=== PATIENT | female | born 1990 | race Caucasian/White ===

== ENCOUNTER 2017-06-26 18:44 | Emergency (ER) | payer MEDICAID ==
[~2017-06-26] VITALS: Ht 165.1 cm; Wt 158.8 kg
[~2017-06-26 18:44] MED LIST: ALB6.7R INH; ROBC PO
--- NOTE | 2017-06-26 18:46 | ER Report ---
History and Physical Time Seen By MD: 18:45 Hx. of Stated Complaint: Nausea vomiting and diarrhea HPI/ROS 26 year old female w 12 hour h/o nausea vomiting and diarrhea . vomiting x 6 diarrhea x 4 Allergies: Coded Allergies: No Known Drug Allergies (Unverified , 06/26/17) Home Meds Active Scripts Diphenoxylate Hcl/Atropine (LOMOTIL TABLET) 1 Each Tablet, 2 EACH PO QID for diarrhea for 3 Days, #12 TAB Prov:DIAMANTE HOLLINGSWORTH 06/26/17 Ondansetron (ZOFRAN ODT) 4 Mg Tab.rapdis, 4 MG PO Q6H Y for NAUSEA/VOMITING, # 20 TAB.NANCY Prov:DIAMANTE HOLLINGSWORTH 06/26/17 Discontinued Reported Medications Albuterol Sulfate (PROVENTIL HFA) 6.7 Gm Inh, 1-2 PUFF INH 3-4XD Y for SHORTNESS OF BREATH, INH 11/19/16 Past Medical/Surgical History History of asthma last menstrual period is May 29 history of anxiety Hx Smoking: Yes (OCCAS) Hx Substance Use Disorder: No Hx Alcohol Use: No Family History of: HTN Constitutional Vital Sign - Last 24 Hours 06/26/17 18:51 Temp 98.4 Pulse 114 Resp 22 B/P (MAP) 140/100 Pulse Ox 96 Intake and Output 06/26/17 06/26/17 06/27/17 15:00 23:00 07:00 Intake Total 1000 ml Balance 1000 ml Physical Exam 26-year-old female alert and oriented mild distress HEENT head is normocephalic/ atraumatic tympanic membranes are non-reddened throat is non-reddened neck is supple no JVD heart rate is regular no murmurs rubs or gallops lungs clear to auscultation abdomen is obese she has hyper active bowel sounds times all quadrants mild midepigastric abdominal pain Medical Decision Making Data Points Result Diagram: 06/26/17189906/26/171899 Laboratory Hematology Test 06/26/17 19:00 Red Blood Count 5.20 M/uL (4.17-5.56) Mean Corpuscular Volume 88.2 fL (80.0-96.0) Mean Corpuscular Hemoglobin 29.5 pg (26.0-33.0) Mean Corpuscular Hemoglobin Concent 33.4 g/dL (32.0-36.0) Red Cell Distribution Width 14.4 % (11.5-14.5) Mean Platelet Volume 8.6 fL (7.2-11.1) Neutrophils (%) (Auto) 79.6 % (39.4-72.5) Lymphocytes (%) (Auto) 12.5 % (17.6-49.6) Monocytes (%) (Auto) 5.6 % (4.1-12.4) Eosinophils (%) (Auto) 1.6 % (0.4-6.7) Basophils (%) (Auto) 0.7 % (0.3-1.4) Nucleated RBC Relative Count (auto) 0.0 /100WBC Neutrophils # (Auto) 8.0 K/uL (2.0-7.4) Lymphocytes # (Auto) 1.3 K/uL (1.3-3.6) Monocytes # (Auto) 0.6 K/uL (0.3-1.0) Eosinophils # (Auto) 0.2 K/uL (0.0-0.5) Basophils # (Auto) 0.1 K/uL (0.0-0.1) Nucleated RBC Absolute Count (auto) 0.00 K/uL Urine Color Yellow Urine Clarity Cloudy Urine pH 6.0 pH (4.8-9.5) Urine Specific [place] 1.021 Urine Protein Negative mg/dL (NEGATIVE) Urine Glucose (UA) Negative mg/dL (NEGATIVE) Urine Ketones Negative mg/dL (NEGATIVE) Urine Blood Negative (NEGATIVE) Urine Nitrite Negative (NEGATIVE) Urine Bilirubin Negative (NEGATIVE) Urine Urobilinogen Negative mg/dL (0.2-1.9) Urine Leukocyte Esterase Trace (NEGATIVE) Urine RBC 1 /HPF (0-2/HPF) Urine WBC 2 /HPF (0-5/HPF) Urine Squamous Epithelial Cells Many /LPF (</=FEW) Urine Bacteria Negative /HPF (NONE-FEW) Urine Mucus None /HPF (NONE-FEW) Sodium Level 138 mmol/L (137-145) Potassium Level 3.7 mmol/L (3.5-5.0) Chloride Level 105 mmol/L (98-107) Carbon Dioxide Level 20 mmol/L (22-31) Blood Urea Nitrogen 11 mg/dl (7-18) Creatinine 0.60 mg/dl (0.52-1.04) Glomerular Filtration Rate Calc > 60.0 Random Glucose 132 mg/dl (75-110) Lactate 2.2 mmol/L (0.7-2.1) Calcium Level 7.9 mg/dl (8.4-10.2) Total Bilirubin 0.3 mg/dl (0.2-1.3) Aspartate Amino Transf (AST/SGOT) 24 U/L (0-35) Alanine Aminotransferase (ALT/SGPT) 34 U/L (0-56) Alkaline Phosphatase 88 U/L (0-126) Total Protein 6.9 gm/dl (6.3-8.2) Albumin 3.5 g/dl (3.5-5.0) Amylase Level 59 U/L (0-110) Lipase 81 U/L (23-300) Human Chorionic Gonadotropin, Qual Negative (NEGATIVE) Chemistry Test 06/26/17 19:00 White Blood Count 10.1 k/uL (4.5-11.0) Red Blood Count 5.20 M/uL (4.17-5.56) Hemoglobin 15.3 g/dL (12.0-16.0) Hematocrit 45.8 % (34.0-47.0) Mean Corpuscular Volume 88.2 fL (80.0-96.0) Mean Corpuscular Hemoglobin 29.5 pg (26.0-33.0) Mean Corpuscular Hemoglobin Concent 33.4 g/dL (32.0-36.0) Red Cell Distribution Width 14.4 % (11.5-14.5) Platelet Count 275 K/uL (150-450) Mean Platelet Volume 8.6 fL (7.2-11.1) Neutrophils (%) (Auto) 79.6 % (39.4-72.5) Lymphocytes (%) (Auto) 12.5 % (17.6-49.6) Monocytes (%) (Auto) 5.6 % (4.1-12.4) Eosinophils (%) (Auto) 1.6 % (0.4-6.7) Basophils (%) (Auto) 0.7 % (0.3-1.4) Nucleated RBC Relative Count (auto) 0.0 /100WBC Neutrophils # (Auto) 8.0 K/uL (2.0-7.4) Lymphocytes # (Auto) 1.3 K/uL (1.3-3.6) Monocytes # (Auto) 0.6 K/uL (0.3-1.0) Eosinophils # (Auto) 0.2 K/uL (0.0-0.5) Basophils # (Auto) 0.1 K/uL (0.0-0.1) Nucleated RBC Absolute Count (auto) 0.00 K/uL Urine Color Yellow Urine Clarity Cloudy Urine pH 6.0 pH (4.8-9.5) Urine Specific [place] 1.021 Urine Protein Negative mg/dL (NEGATIVE) Urine Glucose (UA) Negative mg/dL (NEGATIVE) Urine Ketones Negative mg/dL (NEGATIVE) Urine Blood Negative (NEGATIVE) Urine Nitrite Negative (NEGATIVE) Urine Bilirubin Negative (NEGATIVE) Urine Urobilinogen Negative mg/dL (0.2-1.9) Urine Leukocyte Esterase Trace (NEGATIVE) Urine RBC 1 /HPF (0-2/HPF) Urine WBC 2 /HPF (0-5/HPF) Urine Squamous Epithelial Cells Many /LPF (</=FEW) Urine Bacteria Negative /HPF (NONE-FEW) Urine Mucus None /HPF (NONE-FEW) Glomerular Filtration Rate Calc > 60.0 Lactate 2.2 mmol/L (0.7-2.1) Calcium Level 7.9 mg/dl (8.4-10.2) Total Bilirubin 0.3 mg/dl (0.2-1.3) Aspartate Amino Transf (AST/SGOT) 24 U/L (0-35) Alanine Aminotransferase (ALT/SGPT) 34 U/L (0-56) Alkaline Phosphatase 88 U/L (0-126) Total Protein 6.9 gm/dl (6.3-8.2) Albumin 3.5 g/dl (3.5-5.0) Amylase Level 59 U/L (0-110) Lipase 81 U/L (23-300) Human Chorionic Gonadotropin, Qual Negative (NEGATIVE) Urinalysis Test 06/26/17 19:00 Urine Color Yellow Urine Clarity Cloudy Urine pH 6.0 pH (4.8-9.5) Urine Specific [place] 1.021 Urine Protein Negative mg/dL (NEGATIVE) Urine Glucose (UA) Negative mg/dL (NEGATIVE) Urine Ketones Negative mg/dL (NEGATIVE) Urine Blood Negative (NEGATIVE) Urine Nitrite Negative (NEGATIVE) Urine Bilirubin Negative (NEGATIVE) Urine Urobilinogen Negative mg/dL (0.2-1.9) Urine Leukocyte Esterase Trace (NEGATIVE) Urine RBC 1 /HPF (0-2/HPF) Urine WBC 2 /HPF (0-5/HPF) Urine Squamous Epithelial Cells Many /LPF (</=FEW) Urine Bacteria Negative /HPF (NONE-FEW) Urine Mucus None /HPF (NONE-FEW) EKG/Imaging Imaging FACILITY: [facility] [place] PATIENT NAME: Temi Reinoso : 1990 MR: [id number] V: [id number] EXAM DATE: ORDERING PHYSICIAN: DIAMANTE HOLLINGSWORTH TECHNOLOG[place] [facility] [place] Temi Re[place] : 1990 Visit/Account:[id number] Date of Sevice: 06/26/2017 EXAMINATION: CT abdomen and pelvis with contrast COMPARISON: None. HISTORY: Abdomen pain and vomiting today. PROCEDURE: Multiplanar contrast enhanced CT of the abdomen and pelvis with 75 mL intravenous Isovue 370. One of the following dose optimization techniques was utilized in the performance of this exam: Automated exposure control; adjustment of the mA and/or kV according to the patient's size; or use of an iterative reconstruction technique. Specific details can be referenced in the facility's radiology CT exam operational policy. FINDINGS: Visualized thorax: Negative. Liver: Negative. Gallbladder and biliary system: Negative Spleen: Spleen size is normal. Pancreas: Negative. Adrenal glands: Negative. Kidneys and bladder: No renal mass or evidence of an obstructive uropathy. Urinary bladder is unremarkable. Vessels: Within normal limits. Bowel and mesentery: Stomach is within normal limits. There are a few prominent fluid-filled loops of small bowel but no discrete transition point or evidence of small bowel inflammation. Appendix is unremarkable. Small amount of stool and gas in the colon. No colonic inflammation. Pelvic organs: Negative. Lymph nodes: No adenopathy. Free air/free fluid: None. Abdominal wall and osseous structures: Abdominal wall is intact. Minimal lower thoracic spine degenerative change. IMPRESSION: Mildly prominent fluid-filled loops of small bowel are nonspecific but could be due to a gastroenteritis. Developing obstruction is considered unlikely. Report Dictated By: Ronn Ocampo MD at 06/26/2017 8:38 PM Report E-Signed By: Ronn Ocampo MD at 06/26/2017 8:44 PM [id number] ED Course/Re-evaluation Clinical Indication for ER IV: Hydration ED Course Received a liter of IV fluid 50 of fentanyl IV twice and Zofran 4 mg IV 1 and promethazine 12.5 IV 1 nausea seems better she had some retching before that promethazine seems to be better with that we'll send her home with ODT Zofran and Lomotil follow-up with primary care physician Re-evaluation better after treatment. ct and labs point to gastroenteritis picture no bowel obstruction Decision to Disposition Date: Jun 26, 2017 Decision to Disposition Time: 20:58 Depart Departure Latest Vital Signs Vital Signs Date Time Temp Pulse Resp B/P (MAP) Pulse Ox O2 Delivery O2 Flow Rate FiO2 06/26/17 18:51 98.4 114 22 140/100 96 Impression: Primary Impression: Gastroenteritis Condition: Improved Disposition: HOME OR SELF-CARE Referrals: [facility] 1 Day New Scripts Diphenoxylate Hcl/Atropine (LOMOTIL TABLET) 1 Each Tablet 2 EACH PO QID for diarrhea for 3 Days, #12 TAB Prov: DIAMANTE HOLLINGSWORTH 06/26/17 Ondansetron (ZOFRAN ODT) 4 Mg Tab.rapdis 4 MG PO Q6H Y for NAUSEA/VOMITING, #20 TAB.NANCY Prov: DIAMANTE HOLLINGSWORTH 06/26/17 Patient Instructions: Gastroenteritis (ED) Additional Instructions: Take medications as prescribed and return for any problems or concerns follow- up with her primary care physician coverage oral intake DIAMANTE HOLLINGSWORTH Jun 26, 2017 18:46
[2017-06-26] MEDS ORDERED: NS(*) 0.9% 1000 ML BAG 1,000 ML IV ONE (18:59)
[2017-06-26] MEDS ORDERED: fentaNYL CITR 100 MCG/2 ML AMP IVP ONE ×2 (19:00→19:55)
[2017-06-26] MEDS ORDERED: PANTOPRAZOLE SOD 40 MG IV VIAL IVP ONE (19:00)
[2017-06-26] MEDS ORDERED: ONDANSETRON 4 MG/2 ML VIAL IVP ONE (19:00)
[2017-06-26 19:17] LABS: PLATELET COUNT, AUTOMATED 275 K/uL (150-450)
[2017-06-26] MEDS ORDERED: DIPH-1 PO (19:47)
[2017-06-26] MEDS ORDERED: ONDA4TAB PO (19:47)
[2017-06-26] MEDS ORDERED: NS 0.9% 20 ML SDV 60 ML ONE (20:10)
[2017-06-26] MEDS ORDERED: IOPAMIDOL 76% 75 ML INFUS BTL 75 ML ONE (20:10)
[2017-06-26] MEDS ORDERED: PROMETHAZINE 25 MG/ML 1 ML AMP IVP ONE (20:50)
--- NOTE | 2017-06-26 20:50 | RADIOLOGY IMAGING REPORT ---
FACILITY: [facility] - [place], [place] PATIENT NAME: Temi Reinoso : 1990 MR: [id number] V: [id number] EXAM DATE: ORDERING PHYSICIAN: DIAMANTE HOLLINGSWORTH TECHNOLOGIST: Location: [facility] Patient: Temi Reinoso : 1990 Visit/Account:[id number] Date of Sevice: 06/26/2017 EXAMINATION: CT abdomen and pelvis with contrast COMPARISON: None. HISTORY: Abdomen pain and vomiting today. PROCEDURE: Multiplanar contrast enhanced CT of the abdomen and pelvis with 75 mL intravenous Isovue 3 70. One of the following dose optimization techniques was utilized in the performance of this exam: A utomated exposure control; adjustment of the mA and/or kV according to the patient's size; or use of an iterative reconstruction technique. Specific details can be referenced in the facility's radiolo gy CT exam operational policy. FINDINGS: Visualized thorax: Negative. Liver: Negative. Gallbladder and biliary system: Negative Spleen: Spleen size is normal. Pancreas: Negative. Adrenal glands: Negative. Kidneys and bladder: No renal mass or evidence of an obstructive uropathy. Urinary bladder is unrema rkable. Vessels: Within normal limits. Bowel and mesentery: Stomach is within normal limits. There are a few prominent fluid-filled loops of small bowel but no discrete transition point or evidence of small bowel inflammation. Appendix is un remarkable. Small amount of stool and gas in the colon. No colonic inflammation. Pelvic organs: Negative. Lymph nodes: No adenopathy. Free air/free fluid: None. Abdominal wall and osseous structures: Abdominal wall is intact. Minimal lower thoracic spine degener ative change. IMPRESSION: Mildly prominent fluid-filled loops of small bowel are nonspecific but could be due to a gastroenteri tis. Developing obstruction is considered unlikely. Report Dictated By: Ronn Ocampo MD at 06/26/2017 8:38 PM Report E-Signed By: Ronn Ocampo MD at 06/26/2017 8:44 PM [id number]
[2017-06-26] MEDS ORDERED: ONDANSETRON 4 MG ODT TH SL ONE (21:05)
[2017-06-26] MEDS ORDERED: DIPHENOX/ATROPINE 2.5-0.025MG PO ONE (21:05)
[2017-06-26 21:36] VITALS: BP 138/95
[2017-06-26] MEDS ORDERED: ACET/HYDROC 5/325MG TH ER ONLY 2 TAB/BOTTLE PO ONE (21:40)
== END 2017-06-26 21:40 | disposition home or self-care (01) ==
LOC: ER 19:08
DX: K52.9 Noninfective gastroenteritis and colitis, unspecified (principal)
CPT/HCPCS: 74177; 81001; 82150; 83605; 83690; 84703; 85025; 96361; 96374; 96375; 96376; 99284; C9113; J2405; J2550; J3010; J7030; J7050; Q9967; S0119; 82040; 82247; 82310; 82374; 82435; 82565; 82947; 84075; 84132; 84155; 84295; 84450; 84460; 84520

== ENCOUNTER 2017-08-30 15:50 | Emergency (ER) | payer MEDICAID ==
[~2017-08-30 15:50] MED LIST changes: +DIPH-1 PO; +ONDA4TAB PO
--- NOTE | 2017-08-30 15:57 | ER Report ---
History and Physical Time Seen By MD: 15:57 HPI/ROS CHIEF COMPLAINT: Sore throat HISTORY OF PRESENT ILLNESS: 27 yo female presents to ED with complaints of sore throat. Patient reports that she was seen previously on Monday at urgent care and was diagnosed with "strep throat." She was prescribed Amoxicillin 1000 mg daily and has completed 3 doses as of today. Pt reports that throat pain is not improved and now has burning sensation with swallowing. Pt repots decreased intake of fluids today due to pain. Reports last voiding this AM. REVIEW OF SYSTEMS: ENT: Reports sore throat. Respiratory: No cough, no dyspnea. Cardiovascular: No chest pain, no palpitations. Gastrointestinal: No vomiting, no abdominal pain. Musculoskeletal: No back pain. Allergies: Coded Allergies: No Known Drug Allergies (Unverified , 06/26/17) Home Meds Active Scripts Valacyclovir Hcl (VALTREX) 1,000 Mg Tablet, 1000 MG PO BID for 7 Days, #14 Prov:MYRNABLESSING BUYER BROKER 08/30/17 Discontinued Scripts Diphenoxylate Hcl/Atropine (LOMOTIL TABLET) 1 Each Tablet, 2 EACH PO QID for diarrhea for 3 Days, #12 TAB Prov:DIAMANTE HOLLINGSWORTH 06/26/17 Ondansetron (ZOFRAN ODT) 4 Mg Tab.rapdis, 4 MG PO Q6H Y for NAUSEA/VOMITING, # 20 TAB.NANCY Prov:DIAMANTE HOLLINGSWORTH 06/26/17 Past Medical/Surgical History Patient has a past medical history of asthma, anxiety. Patient has no pertinent surgical history. Reviewed Nurses Notes: Yes Hx Smoking: Yes (OCCAS) Hx Substance Use Disorder: No Hx Alcohol Use: No Constitutional Vital Sign - Last 24 Hours 08/30/17 08/30/17 15:54 17:23 Temp 97.8 Pulse 94 87 Resp 20 B/P (MAP) 151/112 148/96 (113) Pulse Ox 93 O2 Delivery Room Air Intake and Output 08/30/17 08/30/17 08/31/17 15:00 23:00 07:00 Intake Total 650 ml Balance 650 ml Physical Exam General Appearance: The patient is alert, has no immediate need for airway protection and no current signs of toxicity. Eyes: Pupils equal and round no injection. ENT: Teeth in good repair, tongue midline, anterior and posterior pharynx erythematous with exudates. Uvula midline and rises to phonation. Yellow lesion on erythematous space noted midline of uvula. Respiratory: Chest is non tender, lungs are clear to auscultation. Cardiac: regular rate and rhythm Gastrointestinal: Abdomen is soft and non tender, no masses, bowel sounds normal. Musculoskeletal: Neck: Neck is supple and non tender. Extremities have full range of motion and are non tender. Skin: No rashes or lesions. DIFFERENTIAL DIAGNOSIS: After history and physical exam differential diagnosis was considered for strep throat, mono, herpetic gigivus stomatitis. Medical Decision Making Data Points Result Diagram: 08/30/17 1621 08/30/17 1621 Laboratory Hematology Test 08/30/17 16:14 08/30/17 16:21 Monoscreen Negative (NEGATIVE) Group A Streptococcus Screen Negative (NEGATIVE) Red Blood Count 5.25 M/uL (4.17-5.56) Mean Corpuscular Volume 89.1 fL (80.0-96.0) Mean Corpuscular Hemoglobin 30.3 pg (26.0-33.0) Mean Corpuscular Hemoglobin Concent 34.0 g/dL (32.0-36.0) Red Cell Distribution Width 14.8 % (11.5-14.5) Mean Platelet Volume 8.5 fL (7.2-11.1) Neutrophils (%) (Auto) 63.7 % (39.4-72.5) Lymphocytes (%) (Auto) 26.2 % (17.6-49.6) Monocytes (%) (Auto) 6.4 % (4.1-12.4) Eosinophils (%) (Auto) 2.5 % (0.4-6.7) Basophils (%) (Auto) 1.2 % (0.3-1.4) Nucleated RBC Relative Count (auto) 0.1 /100WBC Neutrophils # (Auto) 7.4 K/uL (2.0-7.4) Lymphocytes # (Auto) 3.1 K/uL (1.3-3.6) Monocytes # (Auto) 0.7 K/uL (0.3-1.0) Eosinophils # (Auto) 0.3 K/uL (0.0-0.5) Basophils # (Auto) 0.1 K/uL (0.0-0.1) Nucleated RBC Absolute Count (auto) 0.01 K/uL Sodium Level 138 mmol/L (137-145) Potassium Level 3.8 mmol/L (3.5-5.0) Chloride Level 102 mmol/L (98-107) Carbon Dioxide Level 24 mmol/L (22-31) Blood Urea Nitrogen 9 mg/dl (7-18) Creatinine 0.70 mg/dl (0.52-1.04) Glomerular Filtration Rate Calc > 60.0 Random Glucose 101 mg/dl (75-110) Calcium Level 8.6 mg/dl (8.4-10.2) Total Bilirubin 0.5 mg/dl (0.2-1.3) Aspartate Amino Transf (AST/SGOT) 26 U/L (0-35) Alanine Aminotransferase (ALT/SGPT) 32 U/L (0-56) Alkaline Phosphatase 97 U/L (0-126) Total Protein 7.5 gm/dl (6.3-8.2) Albumin 3.8 g/dl (3.5-5.0) Chemistry Test 08/30/17 16:14 08/30/17 16:21 Monoscreen Negative (NEGATIVE) Group A Streptococcus Screen Negative (NEGATIVE) White Blood Count 11.7 k/uL (4.5-11.0) Red Blood Count 5.25 M/uL (4.17-5.56) Hemoglobin 15.9 g/dL (12.0-16.0) Hematocrit 46.8 % (34.0-47.0) Mean Corpuscular Volume 89.1 fL (80.0-96.0) Mean Corpuscular Hemoglobin 30.3 pg (26.0-33.0) Mean Corpuscular Hemoglobin Concent 34.0 g/dL (32.0-36.0) Red Cell Distribution Width 14.8 % (11.5-14.5) Platelet Count 336 K/uL (150-450) Mean Platelet Volume 8.5 fL (7.2-11.1) Neutrophils (%) (Auto) 63.7 % (39.4-72.5) Lymphocytes (%) (Auto) 26.2 % (17.6-49.6) Monocytes (%) (Auto) 6.4 % (4.1-12.4) Eosinophils (%) (Auto) 2.5 % (0.4-6.7) Basophils (%) (Auto) 1.2 % (0.3-1.4) Nucleated RBC Relative Count (auto) 0.1 /100WBC Neutrophils # (Auto) 7.4 K/uL (2.0-7.4) Lymphocytes # (Auto) 3.1 K/uL (1.3-3.6) Monocytes # (Auto) 0.7 K/uL (0.3-1.0) Eosinophils # (Auto) 0.3 K/uL (0.0-0.5) Basophils # (Auto) 0.1 K/uL (0.0-0.1) Nucleated RBC Absolute Count (auto) 0.01 K/uL Glomerular Filtration Rate Calc > 60.0 Calcium Level 8.6 mg/dl (8.4-10.2) Total Bilirubin 0.5 mg/dl (0.2-1.3) Aspartate Amino Transf (AST/SGOT) 26 U/L (0-35) Alanine Aminotransferase (ALT/SGPT) 32 U/L (0-56) Alkaline Phosphatase 97 U/L (0-126) Total Protein 7.5 gm/dl (6.3-8.2) Albumin 3.8 g/dl (3.5-5.0) ED Course/Re-evaluation ED Course Patient was admitted in exam room, history and physical were obtained. Differential diagnoses were considered. On examination patient had a yellow lesion noted on her uvula with an erythematous base. A CBC, CMP, strep screen, mono screen were done. The mono screen was negative, CBC and CMP were unremarkable, patient did have a slightly elevated white count of 11.7. Strep screen was negative. Discuss findings with the patient. The findings were consistent on physical exam for a herpetic gingivostomatitis. With the negative lab exams I believe that is likely the cause of her discomfort. We'll go ahead and start her on Valtrex 1 g 2 times a day times for 7 days. She is also to use Magic mouthwash to help with discomfort. I discussed this with patient and her family and they verbalized understanding and agreement with plan. She is to follow-up with primary care provider. She is return to emergency room if condition worsens. Decision to Disposition Date: Aug 30, 2017 Decision to Disposition Time: 17:21 Depart Departure Latest Vital Signs Vital Signs Date Time Temp Pulse Resp B/P (MAP) Pulse Ox O2 Delivery O2 Flow Rate FiO2 08/30/17 17:23 87 148/96 (113) 08/30/17 15:54 97.8 20 93 Room Air Impression: Primary Impression: Herpes gingivostomatitis Condition: Improved Disposition: HOME OR SELF-CARE New Scripts Valacyclovir Hcl (VALTREX) 1,000 Mg Tablet 1000 MG PO BID for 7 Days, #14 Prov: BLESSING NORRIS 08/30/17 Patient Instructions: Oral Herpes Simplex Virus Infections (ED) Additional Instructions: Complete course of Amoxicillin. Fill prescription for Valtrex twice daily for 7 days and Magic mouth wash every 1-2 hours as needed for pain. Drink plenty of fluids. Return to Emergency Department if symptoms worsen. Follow up with Primary Care Provider with routine care. BLESSING NORRIS Aug 30, 2017 15:57
[2017-08-30] MEDS ORDERED: NS(*) 0.9% 1000 ML BAG 1,000 ML IV ONE (16:10)
[2017-08-30] MEDS ORDERED: LIDOCAINE 2% VISC SLN 15ML UDC PO ONE (16:20)
[2017-08-30 16:41] LABS: PLATELET COUNT, AUTOMATED 336 K/uL (150-450)
[2017-08-30] MEDS ORDERED: VALA100062 PO (17:02)
[2017-08-30 17:23] VITALS: BP 148/96
== END 2017-08-30 17:24 | disposition home or self-care (01) ==
LOC: ER 16:04
DX: B00.2 Herpesviral gingivostomatitis and pharyngotonsillitis (principal)
CPT/HCPCS: 85025; 86308; 87081; 87880; 96360; 99284; J7030; 82040; 82247; 82310; 82374; 82435; 82565; 82947; 84075; 84132; 84155; 84295; 84450; 84460; 84520

== ENCOUNTER 2017-12-03 13:24 | Emergency (ER) | payer MEDICAID ==
[~2017-12-03 13:24] MED LIST changes: +VALA100062 PO
[2017-12-03] MEDS ORDERED: ALBU8.5H IH (13:36)
--- NOTE | 2017-12-03 13:38 | ER Report ---
History and Physical Time Seen By MD: 13:38 Hx. of Stated Complaint: patient reports pain and swelling in her left lower limb. she was seen at an urgent care last week and had blood work and ultrasound done HPI/ROS This is a 27-year-old female with no known medical problems who recently moved to the area from [place]. She presents to the ED complaining of pain and swelling in her left lower extremity. She had a lower extremity venous Doppler ultrasound this past at a local urgent care facility, and the study was negative. She continues to have pain and swelling in her left leg. She states that she had swelling in both of her lower extremities however her right leg improved. She recently returned from a 16 hour trip from [place]. She denies any chest pain or shortness of breath. Remainder of the 14 system rev: Yes Allergies: Coded Allergies: No Known Drug Allergies (Unverified , 06/26/17) Home Meds Reported Medications Albuterol Sulfate 90 Mcg/Act (PROAIR HFA 90 MCG/ACT) 8.5 Gm Hfa.aer.ad, 1-2 PUFF IH 3-4XD, INHALER 12/03/17 Discontinued Scripts Valacyclovir Hcl (VALTREX) 1,000 Mg Tablet, 1000 MG PO BID for 7 Days, #14 Prov:BLESSING NORRIS LEGAL ASSISTANT 08/30/17 Reviewed Nurses Notes: Yes Old Medical Records Reviewed: Yes Hx Smoking: Yes (OCCAS) Hx Substance Use Disorder: No Hx Alcohol Use: No Constitutional Vital Sign - Last 24 Hours 12/03/17 13:32 Temp 98.6 Pulse 105 Resp 24 B/P (MAP) 142/107 Pulse Ox 94 O2 Delivery Room Air Physical Exam General Appearance: The patient is alert, has no immediate need for airway protection and no current signs of toxicity. Eyes: Pupils equal and round no injection. Respiratory: Chest is non tender, lungs are clear to auscultation. Cardiac: regular rate and rhythm Gastrointestinal: Abdomen is soft, obese, and non tender, no masses, bowel sounds normal. Musculoskeletal: No bony TTP Extremities: full range of motion, Both LE have pitting edema, but left>right. TTP of the posterior calf and thigh, no erythema Skin: No rashes or lesions. DIFFERENTIAL DIAGNOSIS: After history and physical exam differential diagnosis was considered for DVT, cellulitis, fracture, PE, lymphedema Medical Decision Making EKG/Imaging Imaging Results: Ultrasound of the left LE was obtained. The results of the study are no DVT, but with enlarged lymph node in her left groin. The study was read by the radiologist. I viewed the images myself on the PACS system. ED Course/Re-evaluation ED Course 27-year-old obese female recently turned from a drive from [place] to [place] and then [place] presents to the emergency department with left lower extremity pain and swelling for the past week. She had a negative lower extremity venous Doppler ultrasound this past at an urgent care. She continued to have pain and swelling, so presented to the emergency department. There is no trauma. Her x-ray is within normal limits. I think given the appearance of her lower extremity, her weight of close to 400 pounds, and a recent car trip is consistent with lymphedema. Likely because she was in a sitting position for long periods of time, her body habitus caused her to have back up in her lymph nodes. She denies any abdominal pain or vaginal discharge. No dysuria. I did start her on hydrochlorothiazide. I counseled her to follow up with her primary care doctor, and she said she has a follow-up appointment in [place] for this upcoming week. Decision to Disposition Date: Dec 03, 2017 Decision to Disposition Time: 15:59 Depart Departure Latest Vital Signs Vital Signs Date Time Temp Pulse Resp B/P (MAP) Pulse Ox O2 Delivery O2 Flow Rate FiO2 12/03/17 13:32 98.6 105 24 142/107 94 Room Air Impression: Primary Impression: Lymphedema of extremity Condition: Improved Disposition: HOME OR SELF-CARE Patient Instructions: Lymphedema (ED) KEVIN SHELL MD Dec 03, 2017 13:38
--- NOTE | 2017-12-03 15:07 | RADIOLOGY IMAGING REPORT ---
FACILITY: [facility] PATIENT NAME: Temi Reinoso : 1990 MR: [id number] V: [id number] EXAM DATE: ORDERING PHYSICIAN: KEVIN SHELL TECHNOLOGIST: Location: [facility] - [place] Patient: Temi Reinoso : 1990 Visit/Account:[id number] Date of Sevice: 12/03/2017 Venous Doppler ultrasound left lower extremity Indication: Pain and swelling left foot and ankle for one week.. Comparison: None Available Findings: Duplex Doppler and color flow imaging was performed. The common femoral, femoral, and popl iteal veins are all patent and compressible with normal Doppler wave forms. There are normal respons es to augmentation. The posterior tibial and peroneal veins proximally are not well visualized howeve r the mid to distal aspects are patent in the calf. The proximal greater saphenous vein is also normal. Subcutaneous tissues are unremarkable. Prominent lymph nodes seen in the left groin however they stil l show a fatty hilum and a fairly thin cortex. IMPRESSION: 1. No evidence of deep venous thrombosis of the left lower extremity. Report Dictated By: Cedrick Reza at 12/03/2017 3:01 PM Report E-Signed By: Cedrick Reaz at 12/03/2017 3:03 PM [id number]
[2017-12-03] MEDS ORDERED: HYDROCHLOROTHIAZIDE 25 MG TAB PO ONE (15:40)
[2017-12-03] MEDS ORDERED: ACETAMINOPHEN 500 MG TAB PO ONE (15:40)
--- NOTE | 2017-12-03 16:06 | RADIOLOGY IMAGING REPORT ---
FACILITY: [facility] PATIENT NAME: Temi Reinoso : 1990 MR: [id number] V: [id number] EXAM DATE: ORDERING PHYSICIAN: KEVIN SHELL TECHNOLOGIST: Location: [facility] - [place] Patient: Temi Reinoso : 1990 Visit/Account:[id number] Date of Sevice: 12/03/2017 INDICATION: LLE pain. Left lower extremity pain DATE: 12/03/2017 3:55 PM. TECHNIQUE: TIBIA FIBULA LEFT COMPARISON: None FINDINGS: Alignment is normal. No fracture or dislocation. IMPRESSION: No acute osseous abnormality. Report Dictated By: Juan Minor MD at 12/03/2017 3:55 PM Report E-Signed By: Juan Minor MD at 12/03/2017 4:03 PM WSN:[id number]
[2017-12-03 16:11] VITALS: BP 143/100
== END 2017-12-03 16:12 | disposition home or self-care (01) ==
LOC: ER 13:40
DX: I89.0 Lymphedema, not elsewhere classified (principal)
CPT/HCPCS: 99284

== ENCOUNTER 2017-12-14 16:42 | Emergency (ER) | payer MEDICAID ==
[~2017-12-14 16:42] MED LIST changes: +ALBU8.5H IH
--- NOTE | 2017-12-14 16:50 | ER Report ---
History and Physical Time Seen By MD: 16:50 HPI/ROS CHIEF COMPLAINT: Left lower leg edema and pain HISTORY OF PRESENT ILLNESS: This is a 27-year-old female who returns to the emergency department for left lower leg swelling, and pain. Patient states that when she was seen and evaluated in the emergency department earlier this month she was started on furosemide and potassium 7 days ago. Since then she has had increased left lower leg swelling, redness and pain. Patient has had 2 prior ultrasounds studies which were negative. Patient denies chest pain or shortness of breath. No aches or chills. No nausea or vomiting. No other complaints. REVIEW OF SYSTEMS: Constitutional: No fever, no chills. Eyes: No discharge. ENT: No sore throat. Cardiovascular: No chest pain, no palpitations. Respiratory: No cough, no shortness of breath. Gastrointestinal: No abdominal pain, no vomiting. Genitourinary: No hematuria. Musculoskeletal: As above. Skin: As above. Neurological: No headache. Allergies: Coded Allergies: No Known Drug Allergies (Unverified , 06/26/17) Home Meds Active Scripts Cephalexin 500 Mg Tab (KEFLEX 500 MG TAB) 500 Mg Tablet, 500 MG PO Q6H for 10 Days, #40 TAB 0 Refills Prov:DANELLEMEMOSHARISTACY [facility] CHIEF-BC 12/14/17 Reported Medications Albuterol Sulfate 90 Mcg/Act (PROAIR HFA 90 MCG/ACT) 8.5 Gm Hfa.aer.ad, 1-2 PUFF IH 3-4XD, INHALER 12/03/17 Past Medical/Surgical History The patient has a past medical and surgical history of asthma, anxiety, C- section. Reviewed Nurses Notes: Yes Hx Smoking: Yes (OCCAS) Hx Substance Use Disorder: No Hx Alcohol Use: No Constitutional Vital Sign - Last 24 Hours 12/14/17 16:54 Temp 97.7 Pulse 104 Resp 22 B/P (MAP) 140/95 Pulse Ox 94 O2 Delivery Room Air Physical Exam General Appearance: The patient is alert, has no immediate need for airway protection and no signs of toxicity. Eyes: Pupils equal and round no pallor or injection. ENT, Mouth: Mucous membranes are moist. Respiratory: There are no retractions, lungs are clear to auscultation. Cardiovascular: Regular rate and rhythm, no murmurs, clicks or rubs. Gastrointestinal: Abdomen is soft and non tender, no masses, bowel sounds normal. Neurological: Alert and oriented 4. Moving all extremities. Following all commands. No focal neuro deficits. Skin: Left lower extremity is erythematous, cellulitic with edema and painful to palpation. Musculoskeletal: Neck is supple non tender. Extremities are nontender, nonswollen and have full range of motion. DIFFERENTIAL DIAGNOSIS: After history and physical exam differential diagnosis was considered for leg swelling including but not limited to hypoalbuminemia, congestive heart failure, cor pulmonale, chronic venous stasis and DVT. Medical Decision Making EKG/Imaging Imaging EXAMINATION: Left LOWER EXTREMITY VENOUS DOPPLER ULTRASOUND DATE: 12/14/2017 6:24 PM CLINICAL INFORMATION: Evaluate for DVT REASON FOR STUDY: pain, swelling, increase in size since last ultra sound TECHNIQUE: Grayscale, color Doppler, and spectral Doppler ultrasound was performed of the lower extremity veins to evaluate for deep venous thrombosis. COMPARISON: Ultrasound December 03, 2017 FINDINGS: The left common femoral, femoral, and popliteal veins are compressible with normal flow on color Doppler imaging. There is also normal Doppler flow of the profunda femoris and greater saphenous veins at the confluence with the common femoral vein. The left peroneal vein was not demonstrated presumably due to body habitus. The posterior tibial vein is patent with limited evaluation of the proximal aspect. The anterior tibial vein is patent. The contralateral right common femoral vein demonstrates normal flow on color Doppler and respiratory variations on spectral Doppler. A large lymph node is noted in the left inguinal region. IMPRESSION: No evidence of deep venous thrombosis in the left lower extremity veins. Report Dictated By: Juan Minor MD at 12/14/2017 6:24 PM Report E-Signed By: Juan Minor MD at 12/14/2017 6:26 PM WSN:[id number] ED Course/Re-evaluation ED Course The patient was admitted to room. A history and physical obtained. Differential diagnoses were considered. A saphenous ultrasound of the left lower extremity was negative for DVT. I did tell the patient that this is likely a folliculitis that has developed into a cellulitis. Digital patient to not shave her legs until the infection has resolved. Patient was started on Keflex. The patient does have a follow-up appointment with her new primary care provider tomorrow in [place]. Patient was instructed to keep that appointment. Patient has no depressions or concerns at this time was discharged home. Decision to Disposition Date: Dec 14, 2017 Decision to Disposition Time: 18:38 Depart Departure Latest Vital Signs Vital Signs Date Time Temp Pulse Resp B/P (MAP) Pulse Ox O2 Delivery O2 Flow Rate FiO2 12/14/17 16:54 97.7 104 22 140/95 94 Room Air Impression: Primary Impression: Cellulitis of left lower extremity Condition: Improved Disposition: HOME OR SELF-CARE New Scripts Cephalexin 500 Mg Tab (KEFLEX 500 MG TAB) 500 Mg Tablet 500 MG PO Q6H for 10 Days, #40 TAB 0 Refills Prov: STACY VALLE 12/14/17 Patient Instructions: Cellulitis (ED) Additional Instructions: Drink plenty of water. Get plenty of rest. Take the antibiotics as prescribed. Return to the emergency department for any other concerns or worsening symptoms. Keep your follow-up appointment with her primary care provider tomorrow. STACY VALLE-BC Dec 14, 2017 16:50
--- NOTE | 2017-12-14 18:29 | RADIOLOGY IMAGING REPORT ---
FACILITY: [facility] PATIENT NAME: Temi Reinoso : 1990 MR: [id number] V: [id number] EXAM DATE: ORDERING PHYSICIAN: STACY VALLE TECHNOLOGIST: Location: [facility] Patient: Temi Reinoso : 1990 Visit/Account:[id number] Date of Sevice: 12/14/2017 EXAMINATION: Left LOWER EXTREMITY VENOUS DOPPLER ULTRASOUND DATE: 12/14/2017 6:24 PM CLINICAL INFORMATION: Evaluate for DVT REASON FOR STUDY: pain, swelling, increase in size since last ultra sound TECHNIQUE: Grayscale, color Doppler, and spectral Doppler ultrasound was performed of the lower extre mity veins to evaluate for deep venous thrombosis. COMPARISON: Ultrasound December 03, 2017 FINDINGS: The left common femoral, femoral, and popliteal veins are compressible with normal flow on color Dopp ler imaging. There is also normal Doppler flow of the profunda femoris and greater saphenous veins at the confluence with the common femoral vein. The left peroneal vein was not demonstrated presumably due to body habitus. The posterior tibial vein is patent with limited evaluation of the proximal aspect. The anterior tibial vein is patent. The contralateral right common femoral vein demonstrates normal flow on color Doppler and respiratory variations on spectral Doppler. A large lymph node is noted in the left inguinal region. IMPRESSION: No evidence of deep venous thrombosis in the left lower extremity veins. Report Dictated By: Juan Minor MD at 12/14/2017 6:24 PM Report E-Signed By: Juan Minor MD at 12/14/2017 6:26 PM WSN:[id number]
[2017-12-14] MEDS ORDERED: CEPH500T7 PO (18:39)
[2017-12-14 18:48] VITALS: BP 135/99
== END 2017-12-14 18:48 | disposition home or self-care (01) ==
LOC: ER 16:52
DX: L03.116 Cellulitis of left lower limb (principal)
CPT/HCPCS: 99283

== ENCOUNTER 2018-06-10 13:29 | Emergency (ER) | payer MEDICAID ==
[~2018-06-10 13:29] MED LIST changes: +CEPH500T7 PO
--- NOTE | 2018-06-10 13:34 | ER Report ---
History and Physical Time Seen By MD: 13:33 HPI/ROS CHIEF COMPLAINT: Menstrual cramps HISTORY OF PRESENT ILLNESS: This is a 27-year-old female who presents to the emergency department for menstrual cramps. Patient states the last 2 days during her menstrual cycle she's had cramping, however today it so severe that she is not able to manage this at home, she took 6 extra strength Tylenol tablets at home this morning. She has also been taking ibuprofen. She's had chills, nausea these are sometimes consistent with menstrual cramps. She denies rashes. She is not using any form of contraception. Last bowel movement yesterday. No fevers. No chest pain or shortness of breath. REVIEW OF SYSTEMS: Constitutional: As above. Eyes: No discharge. ENT: No sore throat. Cardiovascular: No chest pain, no palpitations. Respiratory: No cough, no shortness of breath. Gastrointestinal: As above. HOURLY ASSOCIATE: As above. Genitourinary: No hematuria. Musculoskeletal: No back pain. Skin: No rashes. Neurological: No headache. Allergies: Coded Allergies: No Known Drug Allergies (Unverified , 06/26/17) Home Meds Active Scripts Cyclobenzaprine Hcl (CYCLOBENZAPRINE HCL) 10 Mg Tablet, 5-10 MG PO TID PRN for MUSCLE SPASMS, #9 TAB Prov:STACY VALLE [facility]- 06/10/18 Cephalexin 500 Mg Tab (KEFLEX 500 MG TAB) 500 Mg Tablet, 500 MG PO Q6H for 10 Days, #40 TAB 0 Refills Prov:STACY VALLE [facility]- 12/14/17 Reported Medications Albuterol Sulfate 90 Mcg/Act (PROAIR HFA 90 MCG/ACT) 8.5 Gm Hfa.aer.ad, 1-2 PUFF IH 3-4XD, INHALER 12/03/17 Past Medical/Surgical History The patient has a past medical and surgical history of asthma, morbidly obese, anxiety, . Reviewed Nurses Notes: Yes Hx Smoking: Yes (OCCAS) Hx Substance Use Disorder: No Hx Alcohol Use: No Constitutional Vital Sign - Last 24 Hours 06/10/18 13:34 Temp 98.7 Pulse 101 Resp 22 B/P (MAP) 133/98 Pulse Ox 89 O2 Delivery Room Air Physical Exam General Appearance: The patient is alert, has no immediate need for airway protection and no signs of toxicity. Eyes: Pupils equal and round no pallor or injection. ENT, Mouth: Mucous membranes are moist. Respiratory: There are no retractions, lungs are clear to auscultation. Cardiovascular: Regular rate and rhythm. Gastrointestinal: Obese abdomen is soft, mild tenderness to bilateral lower quadrants, localizing to the suprapubic region. No masses, bowel sounds normal. Skin: Warm and dry, no rashes. Musculoskeletal: Neck is supple non tender. Extremities are nontender, nonswollen and have full range of motion. DIFFERENTIAL DIAGNOSIS: After history and physical exam differential diagnosis was considered for abdominal pain in a female including but not limited to ovarian cyst, menstrual cramps, pelvic inflammatory disease, ovarian torsion, urinary tract infection, and appendicitis. Medical Decision Making Data Points Result Diagram: 06/10/18 1400 06/10/18 1400 Laboratory Hematology Test 06/10/18 14:00 06/10/18 14:45 Red Blood Count 5.42 M/uL (4.17-5.56) Mean Corpuscular Volume 90.4 fL (80.0-96.0) Mean Corpuscular Hemoglobin 29.1 pg (26.0-33.0) Mean Corpuscular Hemoglobin Concent 32.2 g/dL (32.0-36.0) Red Cell Distribution Width 16.5 % (11.5-14.5) Mean Platelet Volume 8.7 fL (7.2-11.1) Neutrophils (%) (Auto) 67.8 % (39.4-72.5) Lymphocytes (%) (Auto) 20.8 % (17.6-49.6) Monocytes (%) (Auto) 7.9 % (4.1-12.4) Eosinophils (%) (Auto) 3.3 % (0.4-6.7) Basophils (%) (Auto) 0.2 % (0.3-1.4) Nucleated RBC Relative Count (auto) 0.1 /100WBC Neutrophils # (Auto) 6.5 K/uL (2.0-7.4) Lymphocytes # (Auto) 2.0 K/uL (1.3-3.6) Monocytes # (Auto) 0.8 K/uL (0.3-1.0) Eosinophils # (Auto) 0.3 K/uL (0.0-0.5) Basophils # (Auto) 0.0 K/uL (0.0-0.1) Nucleated RBC Absolute Count (auto) 0.01 K/uL Sodium Level 139 mmol/L (137-145) Potassium Level 3.9 mmol/L (3.5-5.0) Chloride Level 106 mmol/L (98-107) Carbon Dioxide Level 26 mmol/L (22-31) Blood Urea Nitrogen 12 mg/dl (7-18) Creatinine 0.60 mg/dl (0.52-1.04) Glomerular Filtration Rate Calc > 60.0 Random Glucose 136 mg/dl (75-110) Calcium Level 8.4 mg/dl (8.4-10.2) Total Bilirubin 0.2 mg/dl (0.2-1.3) Aspartate Amino Transf (AST/SGOT) 30 U/L (0-35) Alanine Aminotransferase (ALT/SGPT) 47 U/L (0-56) Alkaline Phosphatase 82 U/L (0-126) Total Protein 7.0 g/dl (6.3-8.2) Albumin 3.6 g/dl (3.5-5.0) Human Chorionic Gonadotropin, Qual Negative (NEGATIVE) Urine Color Yellow Urine Clarity Slightly-cloudy Urine pH 6.0 pH (4.8-9.5) Urine Specific [place] 1.020 Urine Protein 30 mg/dL (NEGATIVE) Urine Glucose (UA) Negative mg/dL (NEGATIVE) Urine Ketones Negative mg/dL (NEGATIVE) Urine Blood Large (NEGATIVE) Urine Nitrite Negative (NEGATIVE) Urine Bilirubin Negative (NEGATIVE) Urine Urobilinogen 2.0 mg/dL (0.2-1.9) Urine Leukocyte Esterase Negative (NEGATIVE) Urine RBC 188 /HPF (0-2/HPF) Urine WBC 10 /HPF (0-5/HPF) Urine Squamous Epithelial Cells Many /LPF (</=FEW) Urine Bacteria Negative /HPF (NONE-FEW) Urine Mucus Few /HPF (NONE-FEW) Chemistry Test 06/10/18 14:00 06/10/18 14:45 White Blood Count 9.6 k/uL (4.5-11.0) Red Blood Count 5.42 M/uL (4.17-5.56) Hemoglobin 15.8 g/dL (12.0-16.0) Hematocrit 49.0 % (34.0-47.0) Mean Corpuscular Volume 90.4 fL (80.0-96.0) Mean Corpuscular Hemoglobin 29.1 pg (26.0-33.0) Mean Corpuscular Hemoglobin Concent 32.2 g/dL (32.0-36.0) Red Cell Distribution Width 16.5 % (11.5-14.5) Platelet Count 350 K/uL (150-450) Mean Platelet Volume 8.7 fL (7.2-11.1) Neutrophils (%) (Auto) 67.8 % (39.4-72.5) Lymphocytes (%) (Auto) 20.8 % (17.6-49.6) Monocytes (%) (Auto) 7.9 % (4.1-12.4) Eosinophils (%) (Auto) 3.3 % (0.4-6.7) Basophils (%) (Auto) 0.2 % (0.3-1.4) Nucleated RBC Relative Count (auto) 0.1 /100WBC Neutrophils # (Auto) 6.5 K/uL (2.0-7.4) Lymphocytes # (Auto) 2.0 K/uL (1.3-3.6) Monocytes # (Auto) 0.8 K/uL (0.3-1.0) Eosinophils # (Auto) 0.3 K/uL (0.0-0.5) Basophils # (Auto) 0.0 K/uL (0.0-0.1) Nucleated RBC Absolute Count (auto) 0.01 K/uL Glomerular Filtration Rate Calc > 60.0 Calcium Level 8.4 mg/dl (8.4-10.2) Total Bilirubin 0.2 mg/dl (0.2-1.3) Aspartate Amino Transf (AST/SGOT) 30 U/L (0-35) Alanine Aminotransferase (ALT/SGPT) 47 U/L (0-56) Alkaline Phosphatase 82 U/L (0-126) Total Protein 7.0 g/dl (6.3-8.2) Albumin 3.6 g/dl (3.5-5.0) Human Chorionic Gonadotropin, Qual Negative (NEGATIVE) Urine Color Yellow Urine Clarity Slightly-cloudy Urine pH 6.0 pH (4.8-9.5) Urine Specific [place] 1.020 Urine Protein 30 mg/dL (NEGATIVE) Urine Glucose (UA) Negative mg/dL (NEGATIVE) Urine Ketones Negative mg/dL (NEGATIVE) Urine Blood Large (NEGATIVE) Urine Nitrite Negative (NEGATIVE) Urine Bilirubin Negative (NEGATIVE) Urine Urobilinogen 2.0 mg/dL (0.2-1.9) Urine Leukocyte Esterase Negative (NEGATIVE) Urine RBC 188 /HPF (0-2/HPF) Urine WBC 10 /HPF (0-5/HPF) Urine Squamous Epithelial Cells Many /LPF (</=FEW) Urine Bacteria Negative /HPF (NONE-FEW) Urine Mucus Few /HPF (NONE-FEW) Urinalysis Test 06/10/18 14:45 Urine Color Yellow Urine Clarity Slightly-cloudy Urine pH 6.0 pH (4.8-9.5) Urine Specific [place] 1.020 Urine Protein 30 mg/dL (NEGATIVE) Urine Glucose (UA) Negative mg/dL (NEGATIVE) Urine Ketones Negative mg/dL (NEGATIVE) Urine Blood Large (NEGATIVE) Urine Nitrite Negative (NEGATIVE) Urine Bilirubin Negative (NEGATIVE) Urine Urobilinogen 2.0 mg/dL (0.2-1.9) Urine Leukocyte Esterase Negative (NEGATIVE) Urine RBC 188 /HPF (0-2/HPF) Urine WBC 10 /HPF (0-5/HPF) Urine Squamous Epithelial Cells Many /LPF (</=FEW) Urine Bacteria Negative /HPF (NONE-FEW) Urine Mucus Few /HPF (NONE-FEW) ED Course/Re-evaluation Clinical Indication for ER IV: Hydration, IV Access ED Course The patient was admitted to a room. A history and physical were obtained. Differential diagnoses were considered. An IV was started. A CBC, CMP and UA were collected. A 1 L normal saline bolus was given. 30 mg IV Toradol, 30 mg IV Norflex. Patient did have moderate relief of her symptoms. Laboratory studies unremarkable, contaminated UA, with large blood from menstrual cycle. I reviewed the laboratory studies with the patient. Patient was given Flexeril to go home with. I did recommend establishing with either a primary care provider or HOURLY ASSOCIATE within the next week for reevaluation and follow-up and long-term treatment of her menstrual cramps. The patient express understanding, was in agreement with this plan of care and discharged home. Decision to Disposition Date: Jun 10, 2018 Decision to Disposition Time: 15:25 Depart Departure Latest Vital Signs Vital Signs Date Time Temp Pulse Resp B/P (MAP) Pulse Ox O2 Delivery O2 Flow Rate FiO2 06/10/18 13:34 98.7 101 22 133/98 89 Room Air Impression: Primary Impression: Menstrual cramps Condition: Improved Disposition: HOME OR SELF-CARE Referrals: FINANCIAL COST ANALYST 2 Weeks New Scripts Cyclobenzaprine Hcl (CYCLOBENZAPRINE HCL) 10 Mg Tablet 5-10 MG PO TID PRN for MUSCLE SPASMS, #9 TAB Prov: STACY VALLE 06/10/18 Patient Instructions: Menstruation (GEN) Additional Instructions: Please establish with and follow up with a PCP or HOURLY ASSOCIATE within 2 weeks for reevaluation and manager long term care treatment of your menstrual cramps. Take the flexeril as needed. Only take up to 800mg of ibuprofen every 8 hours as needed. Only take up to 1000mg of Tylenol as needed for pain, every 8 hours as needed. Drink plenty of water. Get plenty of rest. Return to the ED for any other concerns or worsening symptoms. STACY VALLE Jun 10, 2018 13:34
[2018-06-10] MEDS ORDERED: NS(*) 0.9% 1000 ML BAG 1,000 ML IV ONE (13:49)
[2018-06-10] MEDS ORDERED: ONDANSETRON 4 MG/2 ML VIAL IVP ONE (13:50)
[2018-06-10] MEDS ORDERED: KETOROLAC 30 MG/ML VIAL IVP ONE (13:50)
[2018-06-10 14:15] LABS: PLATELET COUNT, AUTOMATED 350 K/uL (150-450)
[2018-06-10] MEDS ORDERED: ORPHENADRINE 60MG/2ML INJ IVP ONE (14:50)
[2018-06-10 15:15] VITALS: BP 136/98
[2018-06-10] MEDS ORDERED: CYCL10TA29 PO (15:27)
== END 2018-06-10 15:35 | disposition home or self-care (01) ==
LOC: ER 13:54
DX: N94.6 Dysmenorrhea, unspecified (principal)
CPT/HCPCS: 81001; 84703; 85025; 96361; 96374; 96375; 99284; J1885; J2360; J2405; J7030; 82040; 82247; 82310; 82374; 82435; 82565; 82947; 84075; 84132; 84155; 84295; 84450; 84460; 84520